=== PATIENT | male | born 1965 | race Caucasian/White ===

== ENCOUNTER 2017-11-27 06:40 | Day surgery (SDC) | payer BC, MEDICAID ==
[2017-11-27] MEDS ORDERED: MIDAZOLAM 1 MG/ML 2 ML INJ ×2 (08:19)
[2017-11-27] MEDS ORDERED: FENTAnyl 50 MCG/ML VIAL (08:20)
== END 2017-11-27 15:06 | disposition home or self-care (01) ==
LOC: GIL 06:40
DX: Z12.11 Encounter for screening for malignant neoplasm of colon (principal); K57.90 Diverticulosis of intestine, part unspecified, without perforation or abscess without bleeding; K64.8 Other hemorrhoids; I10 Essential (primary) hypertension
CPT/HCPCS: 45378; 82962

== ENCOUNTER 2018-01-25 09:16 | Emergency (ER) | payer MEDICAID, BC | END 2018-01-25 10:45 | disposition home or self-care (01) | LOC: E/R 09:16 | DX: J02.9 Acute pharyngitis, unspecified (principal); I10 Essential (primary) hypertension; Z79.84 Long term (current) use of oral hypoglycemic drugs | CPT/HCPCS: 99284; Z7502 ==